=== PATIENT | male | born 1955 | race Caucasian/White ===

== ENCOUNTER 2022-10-24 05:41 | Inpatient (IN) | payer MEDICARE ==
[~2022-10-24] VITALS: Ht 188 cm; Wt 100.0 kg
[~2022-10-24 05:41] MED LIST: ACET-3385 PO; ATOR40TA28 PO; CYCL-448 PO; DICL100G60 TP; DULO-113 PO; LISI-893 PO; MELO-381 PO; RINGERS SOLUTION,LACTATED 1,000 ML IV ONE
[2022-10-24] MEDS ORDERED: RINGERS SOLUTION,LACTATED 1,000 ML IV ONE ×2 (06:00→09:04)
[2022-10-24] MEDS ORDERED: ETHYL ALCOHOL 62% ANTISEPTIC NASAL SANITIZER 0.6 ML AMPUL NASAL ONE (06:00)
[2022-10-24] MEDS ORDERED: SODIUM CHLORIDE 0.9% 100 ML ONE (06:53)
[2022-10-24] MEDS ORDERED: VANCOMYCIN HCL 1 GM/VIAL ONE (06:53)
[2022-10-24] MEDS ORDERED: BUPIVACAINE HCL/PF 0.5% 30 ML VIAL ONE (06:53)
[2022-10-24] MEDS ORDERED: ONDANSETRON HCL 4 MG/2 ML VIAL IVP PRN ×2 (07:00→09:30)
[2022-10-24] MEDS ORDERED: FentaNYL CITRATE PF 100 MCG/2 ML VIAL IVP PRN (07:00)
[2022-10-24] MEDS ORDERED: BUPIVACAINE LIPOSOME/PF 1.3%-13.3MG/ML SUSPENSION 20 ML VIAL INJ ONE (07:00)
[2022-10-24] MEDS ORDERED: HYDROmorphone HCL 2 MG/ML SYRINGE IVP PRN (07:00)
[2022-10-24] MEDS ORDERED: CELECOXIB 200 MG CAPSULE PO ONE (07:00)
[2022-10-24] MEDS ORDERED: CYCLOBENZAPRINE HCL 10 MG TABLET PO PRN (07:00)
[2022-10-24] MEDS ORDERED: MEPERIDINE-PF 25 MG/ML VIAL IVP PRN (07:00)
[2022-10-24] MEDS ORDERED: ZOLPIDEM TARTRATE 10 MG TABLET PO PRN (07:00)
[2022-10-24] MEDS ORDERED: CELECOXIB 200 MG CAPSULE ONE (07:06)
[2022-10-24] MEDS: ACETAMINOPHEN 1000 MG/ISO-OSM 100 ML IV SCH ×2 (07:11→19:00)
[2022-10-24] MEDS: OXYGEN THERAPY IH SCH (08:00)
[2022-10-24] MEDS ORDERED: BISACODYL 10 MG RECTAL RECTAL SUPPOSITORY PR PRN (09:30)
[2022-10-24] MEDS ORDERED: BENZOCAINE/MENTHOL LOZENGE PO PRN (09:30)
[2022-10-24] MEDS ORDERED: DiphenhydrAMINE HCL 50 MG/ML VIAL IVP PRN (09:30)
[2022-10-24] MEDS ORDERED: HYDROmorphone HCL 2 MG/ML SYRINGE ONE (09:46)
[2022-10-24] MEDS: HYDROmorphone HCL 2 MG/ML SYRINGE IVP PRN ×2 (09:51→10:18)
[2022-10-24] MEDS: LISINOPRIL 10 MG TABLET PO SCH (12:54)
[2022-10-24 14:38] VITALS: BP 155/88; PULSE 68; RESP 18; TEMP 97.7
[2022-10-24] MEDS ORDERED: PNEUMOCOCCAL VACCINE POLYVALENT 0.5 ML SYRINGE [PPSV23] IM. ONE (15:15)
[2022-10-24 16:00] VITALS: BP 145/78; PULSE 72; RESP 18; TEMP 98
[2022-10-24] MEDS ORDERED: SODIUM CHLORIDE 0.9% 250 ML IV ONE (18:23)
[2022-10-24] MEDS: OxyCODONE HCL 5 MG IR TABLET PO PRN (18:26)
[2022-10-24] MEDS: CeFAZolin 2 GM/DEXTROSE 50 ML IV SCH (18:27)
[2022-10-24 20:25] VITALS: BP 138/69; PULSE 73; RESP 18; TEMP 97.5
[2022-10-24] MEDS: DOCUSATE SODIUM 100 MG CAPSULE PO SCH (21:00)
[2022-10-24] MEDS: CELECOXIB 200 MG CAPSULE PO SCH (22:26)
[2022-10-24] MEDS: FAMOTIDINE 20 MG TABLET PO SCH (22:26)
[2022-10-25 00:17] VITALS: BP 135/83; PULSE 71; RESP 18; TEMP 98.3
[2022-10-25] MEDS: ACETAMINOPHEN 1000 MG/ISO-OSM 100 ML IV SCH ×3 (01:19→11:19)
[2022-10-25] MEDS: CeFAZolin 2 GM/DEXTROSE 50 ML IV SCH (02:42)
[2022-10-25] MEDS ORDERED: SODIUM CHLORIDE 0.9% 250 ML IV ONE (02:46)
[2022-10-25 06:07] VITALS: BP 140/89; PULSE 79; RESP 18; TEMP 98.1
[2022-10-25] MEDS ORDERED: CeFAZolin SODIUM 1 GM VIAL IVP ONE (06:15)
[2022-10-25] MEDS ORDERED: DEXAMETHASONE SOD PHOS 4 MG/ML VIAL IVP ONE (06:15)
[2022-10-25] MEDS ORDERED: FentaNYL CITRATE PF 100 MCG/2 ML VIAL IVP ONE (06:15)
[2022-10-25] MEDS ORDERED: ACETAMINOPHEN/ISO-OSM 1000 MG/100 ML BOTTLE IV ONE (06:15)
[2022-10-25] MEDS ORDERED: MIDAZOLAM HCL 2 MG/2 ML VIAL IVP ONE (06:15)
[2022-10-25] MEDS ORDERED: SUGAMMADEX SODIUM 200 MG/2 ML VIAL IVP ONE (06:15)
[2022-10-25] MEDS ORDERED: HYDROmorphone HCL 2 MG/ML SYRINGE IVP ONE (06:15)
[2022-10-25] MEDS ORDERED: TRANEXAMIC ACID 1,000 MG/10 ML VIAL IVP ONE (06:15)
[2022-10-25] MEDS ORDERED: ROCURONIUM BROMIDE 10 MG/ML 5 ML VIAL IVP ONE (06:15)
[2022-10-25] MEDS ORDERED: 0.9% SODIUM CHLORIDE 10 ML VIAL IVP ONE (06:15)
[2022-10-25] MEDS ORDERED: ONDANSETRON HCL 4 MG/2 ML VIAL IVP ONE (06:15)
[2022-10-25] MEDS ORDERED: LIDOCAINE/PF 2% 5 ML VIAL IM ONE (06:15)
[2022-10-25] MEDS ORDERED: PROPOFOL 1% 20 ML VIAL IVP ONE (06:15)
[2022-10-25 06:49] LABS: EOSINOPHILS % (AUTO) 0 % (1.0-6.0); HEMATOCRIT 41.8 % (41-53); HEMOGLOBIN 13.7 g/dL (13.5-17.5); LYMPHOCYTES # (AUTO) 2.7 K/uL (1.0-4.8); LYMPHOCYTES % (AUTO) 14.7 % (22.0-44.0); MEAN CORPUSCULAR HEMOGLOBIN 29.6 pg (26.0-34.0); MEAN CORPUSCULAR HGB CONC 32.9 G/dL (31.0-37.0); MEAN CORPUSCULAR VOLUME 90 fL (80-100); MONOCYTES # (AUTO) 2.4 K/uL (0.1-1.0); MONOCYTES % (AUTO) 13.1 % (2.0-9.0); NEUTROPHILS # (AUTO) 13.4 K/uL (1.8-7.7); NEUTROPHILS % (AUTO) 72.2 % (40.0-70.0); PLATELET COUNT (AUTO) 400 K/uL (150-450); RED BLOOD CELL COUNT(AUTO) 4.63 MIL/uL (4.50-5.90); RED CELL DISTRIBUTION WIDTH 13.6 % (11.5-14.5)
[2022-10-25 07:11] LABS: ANION GAP 8 mmol/L (8-16); CALCIUM, TOTAL 8.8 mg/dL (8.8-10.5); CARBON DIOXIDE 29 mmol/L (22-29); CHLORIDE 100 mmol/L (98-107); CREATININE 0.64 mg/dL (0.60-1.30); GLOMERULAR FILTR. RATE CALC > 60 mL/min (>60); GLUCOSE,RANDOM 123 mg/dL (70-110); POTASSIUM 3.9 mmol/L (3.5-5.1); SODIUM SERUM 137 mmol/L (136-145)
[2022-10-25 07:19] VITALS: BP 132/74; PULSE 84; RESP 19; TEMP 97.5
[2022-10-25] MEDS: OXYGEN THERAPY IH SCH (08:00)
[2022-10-25] MEDS ORDERED: MELOXICAM 7.5 MG TABLET PO SCH (09:00)
[2022-10-25] MEDS ORDERED: LISINOPRIL 10 MG TABLET PO SCH (09:00)
[2022-10-25] MEDS: FAMOTIDINE 20 MG TABLET PO SCH ×2 (09:20→19:59)
[2022-10-25] MEDS: ATORVASTATIN CALCIUM 40 MG TABLET PO SCH (09:20)
[2022-10-25] MEDS: LISINOPRIL 10 MG TABLET PO SCH (09:21)
[2022-10-25] MEDS: ASPIRIN 81 MG CHEWABLE TABLET PO SCH ×2 (09:21→19:59)
[2022-10-25] MEDS: DOCUSATE SODIUM 100 MG CAPSULE PO SCH ×2 (09:22→19:59)
[2022-10-25] MEDS: CELECOXIB 200 MG CAPSULE PO SCH ×2 (11:19→19:59)
[2022-10-25 11:23] VITALS: BP 127/79; PULSE 70; RESP 19; TEMP 98
[2022-10-25] MEDS: OxyCODONE HCL 5 MG IR TABLET PO PRN (11:31)
[2022-10-25] MEDS ORDERED: OxyCODONE HCL/ACETAMINOPHEN 10-325 MG TABLET PO PRN (13:00)
[2022-10-25 15:05] VITALS: BP 129/79; PULSE 77; RESP 18; TEMP 97.7
[2022-10-25 20:00] VITALS: BP 116/61; PULSE 81; RESP 17; TEMP 97.9
[2022-10-26] VITALS: BP 126/73; PULSE 78; RESP 17; TEMP 98
[2022-10-26 04:00] VITALS: BP 120/75; PULSE 80; RESP 17; TEMP 97.9
[2022-10-26 06:44] LABS: BASOPHILS % (AUTO) 0.3 % (0.0-2.0); HEMATOCRIT 39.9 % (41-53); HEMOGLOBIN 13.4 g/dL (13.5-17.5); LYMPHOCYTES # (AUTO) 3.1 K/uL (1.0-4.8); LYMPHOCYTES % (AUTO) 19.2 % (22.0-44.0); MEAN CORPUSCULAR HEMOGLOBIN 30.3 pg (26.0-34.0); MEAN CORPUSCULAR HGB CONC 33.7 G/dL (31.0-37.0); MEAN CORPUSCULAR VOLUME 90 fL (80-100); MONOCYTES % (AUTO) 12.4 % (2.0-9.0); NEUTROPHILS # (AUTO) 10.9 K/uL (1.8-7.7); NEUTROPHILS % (AUTO) 67.1 % (40.0-70.0); PLATELET COUNT (AUTO) 367 K/uL (150-450); RED BLOOD CELL COUNT(AUTO) 4.44 MIL/uL (4.50-5.90); RED CELL DISTRIBUTION WIDTH 13.6 % (11.5-14.5)
[2022-10-26] MEDS ORDERED: CELECOXIB 200 MG CAPSULE PO SCH (08:00)
[2022-10-26] MEDS ORDERED: MELOXICAM 7.5 MG TABLET PO SCH (08:00)
[2022-10-26] MEDS: OXYGEN THERAPY IH SCH (08:00)
[2022-10-26 08:27] VITALS: BP 125/82; PULSE 84; RESP 20; TEMP 98.3
[2022-10-26] MEDS: ATORVASTATIN CALCIUM 40 MG TABLET PO SCH (08:33)
[2022-10-26] MEDS: LISINOPRIL 10 MG TABLET PO SCH (08:33)
[2022-10-26] MEDS: DOCUSATE SODIUM 100 MG CAPSULE PO SCH (08:33)
[2022-10-26] MEDS: ASPIRIN 81 MG CHEWABLE TABLET PO SCH (08:33)
[2022-10-26] MEDS: FAMOTIDINE 20 MG TABLET PO SCH (08:34)
[2022-10-26 11:15] VITALS: BP 120/80; PULSE 82; RESP 20; TEMP 98.6
[2022-10-26] MEDS ORDERED: ATOR40TA71 PO (11:33)
[2022-10-26] MEDS ORDERED: LISI-893 PO ×2 (11:33)
[2022-10-26] MEDS ORDERED: ASPI81 PO (11:33)
== END 2022-10-26 13:00 | disposition home health service (06) | DRG 470 ==
LOC: 6N 05:41 → 5N 14:15 → 5S 18:50
PROVIDERS: ADMIT Orthopaedic Surgery; ATTEND Internal Medicine
PROC: 8E0YXBZ Computer Assisted Procedure of Lower Extremity (ICD-10-PCS; 2022-10-24)
PROC: 0SRD0J9 Replacement of Left Knee Joint with Synthetic Substitute, Cemented, Open Approach (ICD-10-PCS; principal; 2022-10-24 07:30)
DX: M17.12 Unilateral primary osteoarthritis, left knee (principal); I10 Essential (primary) hypertension; K21.9 Gastro-esophageal reflux disease without esophagitis; E78.5 Hyperlipidemia, unspecified; Z79.899 Other long term (current) drug therapy; Z90.49 Acquired absence of other specified parts of digestive tract
CPT/HCPCS: 80048; 85025; 87081; 97110; 97116; 97165; 97530; 97535; C9290; G0238; G0378; J0131; J0690; J1100; J1170; J2250; J2405; J2704; J3010; J3370; J3490; J7050; J7120; Q9967